=== PATIENT | female | born 1995 | race Asian ===

== ENCOUNTER 2017-06-24 12:33 | Emergency (ER) | payer SELFPAY ==
[~2017-06-24] VITALS: Ht 167.6 cm; Wt 61.9 kg
[2017-06-24 12:50] VITALS: BP 115/75
[2017-06-24] MEDS ORDERED: BACITRACIN ZINC OINT 500U/GM, 0.9 GM ONE (14:01)
== END 2017-06-24 14:33 | disposition home or self-care (01) ==
LOC: ED 14:15
DX: S50.812A Abrasion of left forearm, initial encounter (principal); X58.XXXA Exposure to other specified factors, initial encounter; Y93.89 Activity, other specified; Y92.89 Other specified places as the place of occurrence of the external cause; Y99.8 Other external cause status
CPT/HCPCS: 99283